=== PATIENT | female | born 1955 | race Hispanic/Latino ===

== ENCOUNTER 2024-07-15 15:20 | Emergency (ER) | payer SELFPAY ==
[2024-07-15 15:28] VITALS: BP 143/76
--- NOTE | 2024-07-15 15:48 | ED.GENMED ---
History of Present Illness
General
Chief Complaint: Chest Pain
Time Seen by Provider: 07/15/24 15:48
History of Present Illness
History of Present Illness:
TIME OF INITIAL ENCOUNTER: 3:50 PM
HPI: Patient presents with chest pain and shortness of breath ongoing for several weeks. This started while she was in [facility]. She saw rental clerk in [facility]. I reviewed her medication list from [facility] which include Lasix but family does
not think that she has a diagnosis of heart failure. They are not aware of any coronary disease. She has been coughing as well. Patient states that her symptoms of shortness of breath do get worse when she lays down flat.
EXAM:
GENERAL: Well appearing in no distress, room air sats are 98%, she appears very comfortable
HEENT: Moist oral mucosa
CARDIOVASCULAR: 3 out of 6 systolic murmur mostly in the left upper sternal border, normal heart rate, regular rhythm, No chest wall tenderness
PULMONARY: No respiratory distress, breath sounds are equally decreased
ABDOMEN: Soft with no peritoneal signs, no tenderness
NEUROLOGIC: Excellent strength all extremities, no coordination deficits
PSYCHIATRIC: Appropriate mental status, normal insight and judgement
EXTREMITIES: Nontender, no edema, moves all extremities equally
SKIN: No rash, no lesions
NUMBER AND COMPLEXITY OF PROBLEMS ADDRESSED AT THE ENCOUNTER
� Chronic conditions affecting care: Diabetes, has had hysterectomy and right total knee replacement
� Acute Exacerbation and/or Progression of Chronic Illness: This is an acute problem
� Differential Diagnosis includes: CHF, ACS, bronchitis
AMOUNT AND/OR COMPLEXITY OF DATA TO BE REVIEWED AND ANALYZED
� I performed an independent evaluation of and my interpretation is:
EKG: Sinus 84, left axis deviation, bifascicular block with no old to compare
CT:
X-rays: Chest x-ray suggest borderline CHF/cardiomegaly
Laboratory Studies: CBC normal, chemistries unremarkable, troponin less than 0.012, BNP 933
Other:
� Review of other/old records: No old records available for review in [facility]
� Clinical information was obtained by an independent historian: I spoke to family at bedside
� Prescriptions/Medications Considered but not given:
� Further testing considered but not performed:
RISK OF COMPLICATIONS AND/OR MORBIDITY OR MORTALITY OF PATIENT MANAGEMENT
� Social determinants of health affecting care: Is from [facility] visiting and will be here for the next few months.
� Discussion with other providers:
� Escalation of care including admission/observation vs risk of discharge considered: Since her symptoms have been ongoing for weeks associated with a cough, will also try a DuoNeb. Her vital signs initially are unremarkable
with normal room air sats and she is in no distress.
ANY OTHER UPDATES:
5:40 PM: On reassessment, the patient reports no improvement after DuoNeb was given. Her sats remain normal and she is in no respiratory distress. No clear indication for admission to the hospital. I suspect that there is at least a component of
CHF. She is already on on her medication list from [facility]. She reportedly does not have insurance so I presume that it would be difficult for her to get into a rental clerk here. However, she does not require admission to the hospital as she
is in no significant distress and room air sats are unremarkable.
Phy Exam
Physical Exam
Physical Exam:
See HPI
Scores
Heart Score for Chest Pain Patients
STEMI patient?: Not applicable
Course
Orders/Labs/Results
Orders:
Orders
07/15/24 15:21
EKG [Electrocardiogram (*1)] Urgent
Reason for Study: Chest Pain
EKG- Treatment ONCE
07/15/24 15:51
CR Chest - 2 Views Urgent
Comment:
Reason For Exam: cp sob
07/15/24 15:58
Ipratropium/Albuterol Sulfate [Duoneb] 3 ml INH R NOW STA
07/15/24 16:20
Complete Blood Count/With Diff Urgent
Comprehensive Metabolic Panel Urgent
Lipase Urgent
Magnesium Urgent
NT-proBNP Urgent
Troponin I Urgent
07/15/24 17:33
Furosemide [Lasix] 40 mg IV NOW STA
Abnormal Lab Results
07/15/24
16:20
MCH 31.7 H pg
(27.0-31.0)
MPV 10.7 H fL
(7.4-10.4)
Absolute Monos (auto) 0.8 H 10^3/uL
(0.1-0.6)
Monocytes % 10.5 H %
(1.7-9.3)
07/15/24 16:20
07/15/24 16:20
Vital Signs
Initial and Last Documented VS:
Initial Vital Signs
Temp Pulse Resp BP Pulse Ox
36.4 C 81 18 143/76 98
07/15/24 15:28 07/15/24 15:28 07/15/24 15:28 07/15/24 15:28 07/15/24 15:28
Last Documented Vital Signs
Temp Pulse Resp BP Pulse Ox
36.4 C 76 20 130/73 97
07/15/24 15:28 07/15/24 17:02 07/15/24 16:30 07/15/24 17:02 07/15/24 17:02
*Critical Care Note
Total Time (30-74mins, 75-104mins- exclusive of procedures): Not Applicable
ED Attending Note
-
Portions of this chart may have been created with voice recognition software.� Occasional wrong word or��sound alike� substitutions may have occurred due to the inherent limitations of voice recognition software.
Discharge Plan
Departure
Patient Disposition: Home (Routine Discharge)
Date of Disposition: 07/15/24
Time of Disposition: 17:40
Patient with high blood pressure during this ER visit?: Yes
Discharge Problem:
Congestive heart failure
Instructions: Heart failure, *[facility] Heart Failure Instructions
Referrals:
Shant Romero MD [Active] - Follow up in 2-3 days
Activity Restrictions/Additional Instructions:
Levy radiograf�a de t�rax muestra un poco de l�quido extra; esto se puede observar en casos de insuficiencia card�kayy congestiva. El an�lisis de amy para la insuficiencia card�kayy congestiva aleena es ligeramente alto. Le recomiendo ajit henrry
dosis extra de Lasix solo ma�cony (le administraremos henrry dosis extra hoy). Aleena le he dado la informaci�n de contacto de cardi�logos locales. Aleena oigo un soplo en levy coraz�n, as� que probablemente tenga henrry valvulopat�a. Vuelva aqu� si
empeora.
Interventions
Interventions:
*Risk Screen - Suicide Last Done: 07/15/24 15:28
ED- Cardiac Assessment Last Done: 07/15/24 16:27
Discharge Date and Time
Print Language: CHINESE
[2024-07-15 15:52] VITALS: BP 124/98
[2024-07-15 16:00] VITALS: BP 138/73
[2024-07-15] MEDS: DUONEB 3 ML INH (16:13)
[2024-07-15 16:24] VITALS: BMI 31.0
[2024-07-15 16:35] LABS: % Basophils 0.3 % (0-2); % Eosinophils 1.4 % (0-6); % Immature Granulocytes 0.3 % (0-0.5); % Lymphocytes 37.7 % (20.5-51.1); % Monocytes 10.5 % (1.7-9.3); % Neutrophils 49.8 % (42.2-75.2); Absolute Eosinophils 0.1 10^3/uL (0-0.7); Absolute Lymphocytes 2.7 10^3/uL (1.2-3.4); Absolute Monocytes 0.8 10^3/uL (0.1-0.6); Absolute Neutrophils 3.6 10^3/uL (1.4-6.5); Hematocrit 40.8 % (37.0-47.0); Hemoglobin 14.7 g/dL (12.0-16.0); Mean Corpuscular Hgb 31.7 pg (27.0-31.0); Mean Corpuscular Volume 87.9 fL (81.0-99.0); Mean Platelet Volume 10.7 fL (7.4-10.4); Nucleated Red Blood Cells % 0 %; Platelet Count 142 10^3/uL (130-400); Red Blood Cell Count 4.64 10^6/uL (4.20-5.40); Red Cell Dist. Width 12.5 % (11.5-14.5); White Blood Cell Count 7.1 10^3/uL (4.8-10.8)
[2024-07-15 16:40] LABS: ALT (SGPT) 34 U/L (0-35); AST (SGOT) 32 U/L (14-36); Albumin 4.1 g/dl (3.5-5.0); Alkaline Phosphatase 118 U/L (38-126); Blood Urea Nitrogen 16 mg/dl (7-17); Calcium 9.6 mg/dl (8.4-10.2); Carbon Dioxide 29 mmol/L (22-30); Chloride 101 mmol/L (98-107); Estimated Creatinine Clearance 46 ml/min; Glucose 88 mg/dl (70-99); Lipase 151 U/L (23-300); Magnesium 1.7 mg/dl (1.6-2.3); Potassium 3.8 mmol/L (3.5-5.1); Sodium 140 mmol/L (135-145); Total Bilirubin 1.1 mg/dl (0.2-1.3); Total Protein 6.9 g/dl (6.3-8.2); eGFR > 60.00
[2024-07-15 16:51] LABS: NT-proBNP 933 pg/ml; Troponin I < 0.012 ng/ml
[2024-07-15 17:02] VITALS: BP 130/73
[2024-07-15 18:00] VITALS: BP 129/71
[2024-07-15] MEDS: LASIX 40 MG IV (18:13)
== END 2024-07-15 18:28 | disposition home or self-care (01) ==
LOC: EMR 15:20
PROVIDERS: EMERGENCY PHYSICIAN Emergency Medicine
DX: I50.9 Heart failure, unspecified (principal); I45.2 Bifascicular block; R06.02 Shortness of breath; Z59.71 Insufficient health insurance coverage
CPT/HCPCS: 94640; 96374; 99285; 71046; 80053; 83690; 83735; 83880; 84484; 85025; 93005